=== PATIENT | male | born 1970 | race Caucasian/White ===

== ENCOUNTER 2022-10-13 11:12 | Emergency (ER) | payer BC | END 2022-10-13 13:05 | disposition home or self-care (01) | LOC: JD.ED 11:12 | DX: M51.36 Other intervertebral disc degeneration, lumbar region (principal); Z88.0 Allergy status to penicillin | CPT/HCPCS: 72131; 72131-26; 99283; 99284 ==

== ENCOUNTER 2024-09-05 07:51 | Day surgery (SDC) | payer BC ==
[~2024-09-05 07:51] MED LIST: HYDROmorphone 0.5 MG/0.5 ML Syringe IVPUSH PRN; Midazolam 1 MG/ML 2 ML SDV ONE; Ondansetron 4 MG/2 ML SDV IVPUSH PRN; Ropivacaine 0.5% 5 MG/ML 30 ML SDV ONE; Sodium Chloride 0.9% 10 ML Syringe FLUSH PRN; ceFAZolin 2 GM Vial ONE; fentaNYL 100 MCG/2 ML SDV IVPUSH PRN; fentaNYL 100 MCG/2 ML SDV ONE; propofoL 500 MG/50 ML 50 ML ONE
[2024-09-05] MEDS: Clindamycin Phosphate in D5W 900 MG in Premix Bag 1 BAG IV ONE (08:19)
[2024-09-05] MEDS: Lactated Ringers 1,000 ML IV SCH (08:25)
[2024-09-05] MEDS ORDERED: Sodium Chloride 0.9% 10 ML Syringe FLUSH SCH (09:00)
[2024-09-05] MEDS ORDERED: Acetaminophen/HYDROcodone 325-5 MG Tab PO PRN (09:21)
[2024-09-05] MEDS ORDERED: Propofol 200 MG/20 ML SDV ONE (09:40)
== END 2024-09-05 11:00 | disposition home or self-care (01) ==
LOC: JD.SDS 07:51
PROVIDERS: ATTEND Orthopaedic Surgery
DX: G56.21 Lesion of ulnar nerve, right upper limb (principal); I10 Essential (primary) hypertension; F17.200 Nicotine dependence, unspecified, uncomplicated; Z79.899 Other long term (current) drug therapy; Z88.0 Allergy status to penicillin; Z88.8 Allergy status to other drugs, medicaments and biological substances
CPT/HCPCS: 64718; J0736; J2250; J2704; J2795; J3010; J7120; J0690